=== PATIENT | male | born 1985 | race Native Hawaiian/Other Pacific Islander ===

== ENCOUNTER 2023-07-17 21:22 | Emergency (ER) | payer OTHER, SELFPAY ==
[2023-07-17] VITALS (13 sets, daily range): BP systolic 117–142; BP diastolic 80–88; PULSE 74–114; RESP 24; TEMP 36.9; O2SAT 95–100
--- NOTE | 2023-07-17 21:42 | ED.GENADULT ---
HPI - General Adult General Time Seen by Provider: 21:42 Date Seen: 07/17/23 Chief complaint: Anxiety Stated complaint: Feel numb - dizzy .ill Time Seen by Provider: 07/17/23 21:41 Source: patient, RN notes reviewed and admissions coordinator Mode of arrival: ambulatory Limitations: no limitations History of Present Illness HPI narrative: This 37-year-old male is coming into the ER stating he is feeling anxious, has chest pain. Driving in he felt dizzy, felt like both of his arms went numb. He notes he does have some underlying anxiety, had a spell once before but nothing like this. He had influenza about month and half ago, did recover. Denies any acute cough or cold symptoms. No GI symptoms. He does admit that he will occasionally use cocaine, did use some on Monday. He had 4 beers around noon today. Denies any other illicit drug use. No tobacco products. He notes in the past that he has had some chest pain, has been to the doctor and has had normal EKGs and testing. Unknown if he has ever had a stress test. His older brother has a remote history of cardiac surgery, unknown why. He states he has had another brother that had a heart attack. Patient notes that symptoms started around 730 tonight, I am seeing him right around 10:00 p.m.. He was laying in bed watching TV when it started. He did drink some coffee and water prior to lying down. Patient denies any prior cardiac or respiratory diagnoses. Related Data Previous Rx's Medication Instructions Recorded hydroxyzine HCl 50 mg tablet 50 mg PO TID PRN #20 tabs 07/17/23 indomethacin 50 mg capsule 50 mg PO TID PRN #15 caps 07/17/23 Allergies Allergy/AdvReac Type Severity Reaction Status Date / Time No Known Drug Allergies Allergy Verified 07/17/23 21:38 Review of Systems Status of ROS: Reports: 6 or more systems reviewed and unremarkable except as noted in History and below Exam Const: Vital Signs, click to edit/add: Vital Signs - 24 hr 07/17/23 21:28 Temperature 98.4 F Pulse Rate [Pulse Oximeter] 114 H Respiratory Rate 24 Blood Pressure [Ri ght Upper Arm] 136/80 Pulse Oximetry 95 Oxygen Delivery Me thod Room Air Patient is anxious, moving around in bed, moving his shoulders back in for, readjusting in the bed. He is alert and interactive, seems mildly agitated and anxious but is cooperative. Pupils are equal and round, conjugate gaze, sclera clear. Symmetrical facial function., speech is normal and fluent. Neck supple, no adenopathy, no masses, no jugular venous distension. He does sit up easily, lungs are clear, good air entry, no wheezing or crackles. CV regular rate and rhythm, no murmur, normal S1-S2, no S3-S4. No chest wall pain on palpation. Abdomen is soft, no organomegaly, no rebound or guarding, nondistended, nontender. He has no lower extremity edema. He was ambulatory into the ED of his own accord. Is moving all extremities. Documenting provider has reviewed patient's vital signs: yes Course Course ED Course: Reviewed with patient that his EKG obtained on arrival is reassuring. We will have him on cardiac monitoring, pulse oximetry. He has a point of care troponin running already. Will get a full complement of labs including D-dimer. He will be on cardiac monitoring and pulse oximetry. He certainly seems quite anxious, if his initial point of care troponin is normal, likely will proceed with small dose of IV Ativan in 50 mg oral Vistaril. If D-dimer is elevated, will proceed with CT imaging PE protocol to rule out pulmonary emboli. Again, initial EKG is reassuring, no evidence of any acute ischemia or infarct on that but will await troponin. We will get full complement of labs, consider atypical presentation of GI pathology. Reevaluation(s) Time of Reevaluation #1: 23:15 Reevaluation #1: Patient looks much better. Reviewed that his cardiac enzymes are normal, labs normal, normal D-dimer. Chest x-ray is normal. We discussed anxiety and panic attacks is part of anxiety disorders. We did review that if he has ongoing issues, should follow up in clinic in probably get on some daily suppressive type medicine. In the meantime, will send a prescription for some oral hydroxyzine to be used as p.r.n.. He understands that this is just a medicine that treats acute symptoms, does not help to fix the underlying chemical disorder in the brain. He did bring up that he has went to the doctor for pain in his foot, he states that his right 1st metatarsophalangeal joint will get red, hot and swollen. He believes he has been diagnosed with gout. He is wondering if I could send in a prescription for that as well. His kidney functions are normal. Will send in prescriptions for the hydroxyzine as well as some indomethacin. Vital Signs Vital signs: Initial Vital Signs Temperature 98.4 F 07/17/23 21:28 Temperature Source Temporal Artery Scan 07/17/23 21:28 Pulse Rate 114 H 07/17/23 21:28 Pulse Strength 3+ Normal 07/17/23 21:28 Respiratory Rate 07/17/23 21:28 Blood Pressure 136/80 07/17/23 21:28 Blood Pressure Mean 98 07/17/23 21:28 Pulse Oximetry 95 07/17/23 21:28 Oxygen Delivery Method Room Air 07/17/23 21:28 Vital Signs Temperature 98.4 F 07/17/23 21:28 Pulse Rate 114 H 07/17/23 21:28 Respiratory Rate 24 07/17/23 21:28 Blood Pressure 136/80 07/17/23 21:28 Pulse Oximetry 95 07/17/23 21:28 Oxygen Delivery Method Room Air 07/17/23 21:28 Temperature 98.4 F 07/17/23 21:28 Pulse Rate 114 H 07/17/23 21:28 Respiratory Rate 07/17/23 21:28 Blood Pressure 136/80 07/17/23 21:28 Pulse Oximetry 95 07/17/23 21:28 Oxygen Delivery Method Room Air 07/17/23 21:28 Medications Administered Medications: Discontinued Medications Generic Name Dose Route Start Last Admin Trade Name Freq PRN Reason Stop Dose Admin Hydroxyzine Pamoate 50 mg 07/17/23 21:55 07/17/23 22:07 Hydroxyzine Pamoate 25 Mg Capsule PO 07/17/23 21:56 50 mg ONCE ONE Administration Lorazepam 0.5 mg 07/17/23 21:56 07/17/23 22:06 Lorazepam 2 Mg/Ml Inj IVP 07/17/23 21:57 0.5 mg ONCE ONE Administration Medical Decision Making Lab Data Lab results reviewed: Yes I reviewed the patient's lab results Labs: Lab Results 07/17/23 07/17/23 07/17/23 Range/Units 21:42 21:50 22:55 WBC 8.04 (4.50-11.00) K/uL RBC 4.51 (4.30-5.90) m/uL Hgb 14.0 (13.5-17.5) gm/dL Hct 41.1 (37.0-53.0) % MCV 91 (80-100) fL MCH 31 (26-34) pg MCHC 34 (32-36) gm/dL RDW Coeff of Pinky 13.3 (11.5-15.5) % Plt Count 265 (140-440) K/uL Neut % (Auto) 34.7 L (42.0-72.0) % Lymph % (Auto) 55.1 H (20-44) % [place] % (Auto) 7.3 (0.0-11.0) % Eos % (Auto) 2.1 (0.0-7.0) % Baso % (Auto) 0.4 (0.0-3.0) % Neut # (Auto) 2.80 (1.7-7.0) K/uL Lymph # (Auto) 4.40 H (0.90-2.90) K/uL [place] # (Auto) 0.60 (0.00-0.90) K/UL Eos # (Auto) 0.17 (0.00-0.50) K/uL Baso # (Auto) 0.03 (0.00-0.30) K/uL Abs Immat Gran (auto) 0.03 (0.00-0.30) K/uL Imm/Tot Granulo (auto) 0.4 % D-Dimer Quant (PE/DVT) 0.23 (0.00-0.50) ug/ml Sodium 140 (135-149) mmol/L Potassium 3.4 L (3.6-5.1) mmol/L Chloride 102 (96-114) mmol/L Carbon Dioxide 26 (20-32) mmol/L Anion Gap 12 (7-15) mEq/L BUN 18 (5-24) mg/dL Creatinine 0.9 (0.5-1.5) mg/dL Estimated GFR 112 ml/min Glucose 130 H (60-115) mg/dL Calcium 9.4 (8.4-10.6) mg/dL Total Bilirubin 0.6 (0.1-1.5) mg/dL AST 36 H (12-35) U/L ALT 34 (4-50) U/L Alkaline Phosphatase 137 (40-150) U/L C-Reactive Protein < 0.5 L (0.5-1.0) mg/dL NT-Pro-B Natriuret Pep < 20 pg/mL Total Protein 8.5 H (6.0-8.3) g/dL Albumin 4.8 (3.3-5.0) g/dL POC Troponin I 0.00 L 0.00 L (0.01-0.04) ng/ml Imaging Data Chest x-ray: Attestation: I have reviewed the pertinent imaging results. My impression: I see no evidence of widened mediastinum, no infiltrate, no pleural effusions, no pneumothorax. Await Radiology over-read. Radiologist's impression: Patient: CONSUELO LOVE Facility:?[facility] Patient ID:?[id number] Site Patient ID:?[id number]. Site :?1985 Study:?XRay-Chest 1V PORTABLE-07/17/2023 10:40:58 PM Ordering Physician:FIDEL Final Report: INDICATION: Anxiety. TECHNIQUE: Chest 1 views. COMPARISON: None. FINDINGS: Cardiovascular and mediastinum: Heart size and vasculature are normal in caliber and appearance. Lungs and pleural spaces: Lungs are clear. No sign of infiltrate or mass. No sign of pleural effusion. No pneumothorax. Bones and soft tissues: No significant findings. IMPRESSION: No acute or significant findings. Dictated by Rob Silva MD @ 07/17/2023 11:10:13 PM (Electronic Signature) ECG Data Attestation: I personally reviewed and interpreted this ECG as follows: (Normal sinus rhythm with sinus arrhythmia, 91 beats per minute. No ischemia, no infarct. QT corrected 445 milliseconds.) Prior ECG tracings: not available for review Discharge Plan Discharge Clinical Impression: Acute anxiety Patient Disposition: Home, Self-Care Condition: Stable Instructions: Low Purine Diet (ED), Gout (ED), Panic Disorder (ED), Anxiety (ED) Additional Instructions: Can use the hydroxyzine as needed for acute anxiety. This can be sedating, should not drive or operate machinery while using this medicine. If you are having ongoing issues with anxiety or panic attacks, do need to be seen in clinic, consideration for long-term medication should be discussed. Do recommend minimizing alcohol an substance use, these can worsen anxiety disorders. For your foot joint, sounds as if you are describing gout. You can use the indomethacin as prescribed. Follow up in clinic to get future prescriptions for this, discussed prevention of gout. There is a medicine allopurinol that can be started to help prevent gout. You need to be completely resolved from any gout episodes to start this. I do also think that you should get a physical in clinic, look at your cardiac risk factors given your brother's history of heart disease that you report. Activity Level: Activity as Tolerated Prescriptions: New hydroxyzine HCl 50 mg tablet 50 mg PO TID PRNQty: 20 0RF indomethacin 50 mg capsule 50 mg PO TID PRNQty: 15 0RF Rx Instructions: administer with food or milk Follow Up/Referrals: Provider,Not a Local [Primary Care Provider] - Stand Alone Forms: [employer] Info Instructions
--- NOTE | 2023-07-17 21:55 | XR_ITS ---
Patient: CONSUELO LOVE Facility:?[facility] Patient ID:?[id number] Site Patient ID:?[id number]. Site :?1985 Study:?XRay-Chest 1V PORTABLE-07/17/2023 10:40:58 PM Ordering Physician:FIDEL Final Report: INDICATION: Anxiety. TECHNIQUE: Chest 1 views. COMPARISON: None. FINDINGS: Cardiovascular and mediastinum: Heart size and vasculature are normal in caliber and appearance. Lungs and pleural spaces: Lungs are clear. No sign of infiltrate or mass. No sign of pleural effusion. No pneumothorax. Bones and soft tissues: No significant findings. IMPRESSION: No acute or significant findings. Dictated by Rob Silva MD @ 07/17/2023 11:10:13 PM Signed by:?Rob Silva MD @07/17/2023 11:10:13 PM (Electronic Signature)
[2023-07-17 22:03] LABS: Basophils Absolute Auto 0.03 K/uL (0.00-0.30); Basophils Percent Auto 0.4 % (0.0-3.0); Eosinophils Absolute Auto 0.17 K/uL (0.00-0.50); Eosinophils Percent Auto 2.1 % (0.0-7.0); Hematocrit 41.1 % (37.0-53.0); Immature Granulocytes Abs Auto 0.03 K/uL (0.00-0.30); Immature Granulocytes Pct Auto 0.4 %; Lymphocytes Percent Auto 55.1 % (20-44); Mean Corpuscular HGB Conc 34 gm/dL (32-36); Mean Corpuscular Hemoglobin 31 pg (26-34); Mean Corpuscular Volume 91 fL (80-100); Monocytes Percent Auto 7.3 % (0.0-11.0); Neutrophils Percent Auto 34.7 % (42.0-72.0); Platelet Count* 265 K/uL (140-440); RDW Coefficient of Variation % 13.3 % (11.5-15.5); Red Blood Count 4.51 m/uL (4.30-5.90); Slide Review Reflex No; White Blood Count* 8.04 K/uL (4.50-11.00)
[2023-07-17] MEDS: LORazepam 2 MG/ML inj 0.5 MG IVP (22:06)
[2023-07-17] MEDS: hydrOXYzine pamoate 25 MG CAPSULE 50 MG PO (22:07)
[2023-07-17 22:16] LABS: Albumin* 4.8 g/dL (3.3-5.0); Chloride* 102 mmol/L (96-114); Sodium* 140 mmol/L (135-149)
[2023-07-17 22:17] LABS: Potassium* 3.4 mmol/L (3.6-5.1)
[2023-07-17 22:18] LABS: Creatinine* 0.9 mg/dL (0.5-1.5); Estimated Glomerular Filt Rate 112 ml/min
[2023-07-17 22:19] LABS: Alanine Aminotransferase* 34 U/L (4-50); Alkaline Phosphatase* 137 U/L (40-150); Anion Gap 12 mEq/L (7-15); Aspartate Amino Transferase* 36 U/L (12-35); Bilirubin Total* 0.6 mg/dL (0.1-1.5); Blood Urea Nitrogen* 18 mg/dL (5-24); Carbon Dioxide* 26 mmol/L (20-32); Total Protein* 8.5 g/dL (6.0-8.3)
[2023-07-17 22:20] LABS: Calcium* 9.4 mg/dL (8.4-10.6); Glucose* 130 mg/dL (60-115)
[2023-07-17 22:24] LABS: C Reactive Protein* < 0.5 mg/dL (0.5-1.0)
[2023-07-17 22:30] LABS: NT Pro B Type NatriureticPept* < 20 pg/mL
[2023-07-17 22:45] LABS: D Dimer Quantitative* 0.23 ug/ml (0.00-0.50)
[2023-07-17 23:30] LABS: Amphetamine Screen Urine Negative (Negative); Barbiturate Screen Urine Negative (Negative); Benzodiazepines Screen Urine Negative (Negative); Cannabinoid Screen Urine Negative (Negative); Cocaine Screen Urine POSITIVE (Negative); Methadone Screen Urine Negative (Negative); Methamphetamines Screen Urine Negative (Negative); Opiate Screen Urine Negative (Negative); Oxycodone Screen Urine Negative (Negative); Phencyclidine Screen Urine Negative (Negative); Tricyclic Antidepressant Urine Negative (Negative)
== END 2023-07-17 23:59 | disposition home or self-care (01) ==
PROVIDERS: Emergency Provider Family Medicine
DX: F41.9 Anxiety disorder, unspecified (principal)
CPT/HCPCS: 36415; 71045; 80053; 80306; 83880; 84484; 85025; 85379; 86140; 93005; 94761; 96374; 99284; A9270; J2060